=== PATIENT | female | born 1965 | race Caucasian/White ===

== ENCOUNTER 2020-05-15 10:55 | Inpatient (IN) | payer BC, OTHER ==
[~2020-05-15] VITALS: Ht 177.8 cm; Wt 83.5 kg
[~2020-05-15 10:55] MED LIST: BACTRIM DS TAB1 EACH PO; EXCEDRIN CAPLE1 EACH; IBUPROFEN 600600 M1 PO; NAPROSYN500 MG PO; NOHOMEMEDICATIONS; ULTRAM 50MG TAB50 MG PO; ZPAK PO
[2020-05-15 11:02] VITALS: BP 145/91
[2020-05-15 12:45] LABS: ABSOLUTE NEUTROPHILS 12.7 thou/uL (1.4-8.2); BASOPHILS 0.3 % (0.0-2.0); HEMATOCRIT 44.8 % (37.0-47.0); HEMOGLOBIN 15.2 gm/dL (12.0-15.0); LYMPHOCYTES 5.1 % (24.0-44.0); MCH 31.5 pg (26.0-34.0); MCHC 33.9 g/dL (28.0-37.0); MONOCYTES 8.1 % (1.0-8.0); POLYS 86.5 % (36.0-66.0); RBC 4.82 mil/uL (4.20-5.00); RDW 13.3 % (10.5-14.5); WBC 14.7 thou/uL (4.0-11.0)
[2020-05-15 12:53] LABS: CALCIUM 8.9 mg/dL (8.5-10.1); CREATININE 0.8 mg/dL (0.6-1.0)
[2020-05-15 12:59] LABS: ALBUMIN 3.1 g/dL (3.4-5.0); TOTAL BILIRUBIN 0.6 mg/dL (0.2-1.0); TOTAL PROTEIN 8.2 g/dL (6.4-8.2)
[2020-05-15 13:04] LABS: PLATELET ESTIMATE NORMAL
[2020-05-15 13:05] LABS: PLATELET COUNT 208 thou/uL (150-400)
[2020-05-15 13:06] LABS: LARGE PLATELETS RARE
[2020-05-15 15:27] LABS: URINE BILIRUBIN NEGATIVE (Negative); URINE BLOOD 3+ (Negative); URINE CLARITY CLEAR; URINE COLOR YELLOW; URINE GLUCOSE-RANDOM* NEGATIVE (Negative); URINE KETONES NEGATIVE (Negative); URINE LEUKOCYTES-REFLEX NEGATIVE (Negative); URINE NITRITE-REFLEX NEGATIVE (Negative); URINE PROTEIN (DIPSTICK) 1+ (Negative); URINE SPECIFIC GRAVITY 1.025 (1.005-1.035)
[2020-05-15 15:36] LABS: CASTS None Seen /LPF (None Seen); CRYSTALS None Seen /LPF (None Seen); SQUAMOUS 4-10 Moderate /LPF (0-3); URINE WBC-REFLEX None Seen /HPF (0-5); YEAST-REFLEX Present (None Seen)
[2020-05-15 23:45] VITALS: BP 123/81
--- NOTE | 2020-05-16 07:35 | EKG ---
[facility] [place] [address] ELECTROCARDIOGRAM REPORT Name: NOAH MASSEY Room #: [facility].#: [id number] Admission: 05/15/20 Attend Phys: Discharge: Date of : 67 Report #: [id number] THIS REPORT FOR: cc: OLIVERIO - Meredith family physician/PCP OLIVERIO - Meredith family physician/PCP Shaheen Fair MD [facility] THIS REPORT FOR: //name// [facility] ED Test Date: 2020-05-15 Test Time: 12:58:40 Pat Name: NOAH MASSEY Department: Room: Gender: F Practice Manager: [facility] : 1965 Requested By: Cesar Gee Order Number: [id number] MD: Shaheen Fair Measurements Intervals [place] Rate: 94 P: 76 ND: 146 QRS: -30 QRSD: 102 T: 31 QT: 351 QTc: 439 Interpretive Statements Sinus rhythm Left axis deviation Abnormal inferior Q waves Compared to ECG 10/27/2012 09:00:44 Left-axis deviation now present Inferior Q waves now present Electronically Signed On 05-16-2020 7:34:52 CDT by Shaheen Fair [email or web address] <ELECTRONICALLY SIGNED> By: Shaheen Fair MD, [facility] 05/16/20 0734 [id number] Shaheen Fair MD, [facility] /EPI
[2020-05-16 17:48] LABS: HEMATOCRIT 42.6 % (37.0-47.0); HEMOGLOBIN 14.1 gm/dL (12.0-15.0); MCH 31.1 pg (26.0-34.0); MCV 94.2 fL (80.0-100.0); RBC 4.53 mil/uL (4.20-5.00); RDW 13.9 % (10.5-14.5); WBC 8.3 thou/uL (4.0-11.0)
[2020-05-16 18:06] VITALS: BP 116/71
[2020-05-16 18:29] VITALS: BP 116/71
--- NOTE | 2020-05-16 19:00 | NUR ---
Pt. admitted to the unit from the emergency room accompanied by staff. She is alert and oriented. Pt. was oriented to staff and her room. Pt. offers no complaints at this time.
--- NOTE | 2020-05-16 22:45 | NUR ---
Pt. resting quietly in the bed and admission assessment and history is completed. She was given po pain med earlier for c/o a headache (see emar) with relief verbalized. Up ad triston in her room and she is steady on her feet.
[2020-05-17 04:48] VITALS: BP 128/85
[2020-05-17 07:25] VITALS: BP 137/88
[2020-05-17] MEDS ORDERED: LEVOFLOXACIN500 MG PO (09:45)
[2020-05-17 11:23] VITALS: BP 137/88
[2020-05-17 12:13] VITALS: BP 137/88
--- NOTE | 2020-05-17 13:25 | NUR ---
ASSUMED CARE OF PATIENT AT SHIFT CHANGE. ASSESSMENT CHARTED. MEDS GIVEN PER MAR. VSS. PATIENT IS A&OX4; C/O "AN INTENSE HEADACHE"; PRN PAIN MEDS GIVEN PER ORDER. PATIENT IS INDEPENDENT AND ASYMPTOMATIC. DOCTOR ASSESSED HER INDICATED SHE IS MEDICALLY STABLE FOR DISCHARGE. ONETIME DOSE IV ABX WAS ADMINISTERED BEFORE DISCHARGE INSTRUCTIONS. STILL C/O HEACHACHE. THIS NURSE TOLD PATIENT TO F/U WITH PCP REGARDING HEADACHE. PATIENT COMPLIANT AND READY FOR DISCHARGE
[2020-05-17 14:25] VITALS: BP 137/88
--- NOTE | 2020-05-17 14:26 | NUR ---
PATIENT LEFT UNIT AT APPROX. 1400. NO COMPLAINTS OR NEEDS VOICED.
== END 2020-05-17 15:26 | disposition home or self-care (01) | DRG 195 ==
LOC: ER 10:55 → 4W 05-16 18:38 → EROBS 05-16 18:38 → 4W 05-16 19:48
PROVIDERS: Emergency Medicine; ADMIT Hospitalist; ATTEND Hospitalist
DX: J18.9 Pneumonia, unspecified organism (principal); Z20.828 Contact with and (suspected) exposure to other viral communicable diseases; F17.210 Nicotine dependence, cigarettes, uncomplicated; Z79.82 Long term (current) use of aspirin; Z79.899 Other long term (current) drug therapy
CPT/HCPCS: 10047